=== PATIENT | male | born 1950 | race Caucasian/White ===

== ENCOUNTER → 2020-02-05 10:47 | Outpatient (CLI) | payer MEDICARE, SELFPAY ==
--- NOTE | ~2020-02-05 | XR_ITS ---
XR ankle RT min 3V DATE: 02/05/2020 11:11 INDICATION: Right ankle pain, right foot pain TECHNIQUE: 4 views COMPARISON: None FINDINGS: There is mild plantar calcaneal enthesopathy. No fracture or dislocation of the ankle or disruption of the ankle mortise. No periosteal reaction or bone destruction. Posterior tibial artery calcification is noted in the lower leg and foot. IMPRESSION: Mild plantar calcaneal enthesopathy Arterial calcification Reviewed, dictated and finalized at location B.
== END ==
PROVIDERS: PCP Family Medicine; Visit Provider Physician Assistant
DX: M77.31 Calcaneal spur, right foot (principal); I70.0 Atherosclerosis of aorta
CPT/HCPCS: 73610

== ENCOUNTER 2021-06-16 01:43 | Day surgery (SDC) | payer MEDICARE, SELFPAY ==
[2021-05-28 14:05] VITALS: BMI 26.5
[2021-06-16 07:05] VITALS: BP 152/74; PULSE 61; RESP 18; TEMP 36.3; O2SAT 97; BMI 28.3
[2021-06-16] MEDS: LACTATED RINGERS 1,000 ML 150 ML IV CONT (07:30)
--- NOTE | 2021-06-16 07:54 | WPDGICN ---
Assessment and Plan Assessment and plan (1) Encounter for screening colonoscopy: Code(s): Z12.11 - Encounter for screening for malignant neoplasm of colon Status: Acute Assessment and Plan: Patient presents for screening colonoscopy. He appears to be at average risk for colon polyps. Further recommendations will be given after colonoscopy. GI Consult Note Consult date/time: 06/16/21 07:54 HPI: Freeman Clarke is a 71 year old male Presents for screening colonoscopy. Patient reports his current weight appetite bowel movements are normal. He denies abdominal pain. He has had no bleeding. Family history is noncontributory. His last colonoscopy was 13 years ago. He desires neoplasia screening. Review of Systems Review of Systems: All systems reviewed & are unremarkable except as noted in HPI and below PMFSH Family History Family History (Reviewed 04/10/21 @ 09:04 by Jenny Rushing [facility]) Mother Patient's mother is , Onset Age: 92 Father Family history of Parkinson's disease, Onset Age: 86 Family history of suicide Sibling Family history of suicide Social History Social History (Reviewed 04/10/21 @ 09:04 by Jenny Rushing [facility]) Smoking status: Never smoker Second hand tobacco smoke exposure: No Alcohol intake: current Drinks per week: 7 Substance use type: does not use Living arrangements: alone Meds Home Medications and Allergies Home Medications Medication Instructions Recorded Confirmed Type aspirin 81 mg tablet,delayed 81 mg PO DAILY 06/11/20 06/16/21 History release zinc 50 mg tablet 50 mg PO DAILY 06/11/20 06/16/21 History alprazolam 0.5 mg tablet 0.5 mg PO .qhs #90 tablet 05/28/21 06/16/21 Rx venlafaxine [Effexor XR] See Rx Instructions .ROUTE .COMPLEX 05/28/21 06/16/21 History Allergies Allergy/AdvReac Type Severity Reaction Status Date / Time No Known Allergies Allergy Unknown Verified 06/16/21 07:18 Vital Signs Vital Signs - 24 hr 06/16/21 07:05 Temperature 97.3 F L Pulse Rate 61 Respiratory Rate 18 Blood Pressure 152/74 H Pulse Oximetry 97 Exam Narrative: Physical exam reveals patient to be alert. Vital signs stable. HEENT exam is unremarkable. Patient is anicteric. Lungs are clear to auscultation and percussion. Heart is without murmur or extra sounds. Abdominal exam bowel sounds are present soft nontender with no organomegaly. Digital external rectal exam is normal.
--- NOTE | 2021-06-16 08:22 | WPDANESEPPF ---
Anes - Initial Pre Proc Eval Procedure: Operation Date: 06/16/21 08:30 Proposed Procedures p Screening Colonoscopy - Clarence Walker MD Date/Time: 06/16/21 08:22 Surgeon: Clarence Walker MD Pre Op Diagnosis: neoplasm screening Patient Data Age: 71 Gender: M Height: 1.78 m Weight: 89.5 kg Last Vital Signs Temp 97.3 F L 06/16/21 07:05 Pulse 61 06/16/21 07:05 Resp 18 06/16/21 07:05 BP 152/74 H 06/16/21 07:05 Pulse Ox 97 06/16/21 07:05 Allergies Allergy/AdvReac Type Severity Reaction Status Date / Time No Known Allergies Allergy Unknown Verified 06/16/21 07:18 Home Medications Medication Instructions Recorded Confirmed Type aspirin 81 mg tablet,delayed 81 mg PO DAILY 06/11/20 06/16/21 History release zinc 50 mg tablet 50 mg PO DAILY 06/11/20 06/16/21 History alprazolam 0.5 mg tablet 0.5 mg PO .qhs #90 tablet 05/28/21 06/16/21 Rx venlafaxine [Effexor XR] See Rx Instructions .ROUTE .COMPLEX 05/28/21 06/16/21 History Patient hx anesthesia problems: none Family hx anesthesia problems: none Results Review: All pre-operative results and documents have been reviewed as part of the pre-operative evaluation. [facility] Past Medical History Medical History (Updated 06/16/21 @ 08:22 by Pal Cherry MD) Essential (primary) hypertension (08/03/17) Family History Family History Mother Patient's mother is , Onset Age: 92 Father Family history of Parkinson's disease, Onset Age: 86 Family history of suicide Sibling Family history of suicide Social History Social History Smoking status: Never smoker Second hand tobacco smoke exposure: No Alcohol intake: current Drinks per week: 7 Substance use type: does not use Living arrangements: alone Anes - Eval Final PreProcedure Day of Procedure 06/16/21 08:22 Patient weight: obese Heart: regular rate and rhythm Lungs: clear to auscultation Airway: Mallampati scale class II Neurological: alert and oriented Last oral intake: >/= 8 hours ASA classification: III Emergent: no Anesthetic plan: proceed Anesthesia type and monitoring: general GIVS and standard monitoring Results Review: All pre-operative results and documents have been reviewed as part of the pre-operative evaluation. Informed Consent: The patient's anesthetic plan and its attendant risks and benefits were discussed with the patient/family/POA. Questions were solicited and answers provided to the satisfaction of the patient/family/POA.
[2021-06-16 08:59] VITALS: BP 128/73; PULSE 59; RESP 27; O2SAT 97
[2021-06-16 09:09] VITALS: BP 150/91; PULSE 55; RESP 26; O2SAT 98
[2021-06-16 09:19] VITALS: BP 142/73; PULSE 50; RESP 20; O2SAT 96
== END 2021-06-16 09:35 | disposition home or self-care (01) ==
PROVIDERS: PCP Family Medicine; Visit Provider Internal Medicine Gastroenterology
PROC: 0DJD8ZZ Inspection of Lower Intestinal Tract, Via Natural or Artificial Opening Endoscopic (ICD-10-PCS; CPT 45378; principal; 2021-06-16 08:30)
DX: Z12.11 Encounter for screening for malignant neoplasm of colon (principal); K64.8 Other hemorrhoids; K57.30 Diverticulosis of large intestine without perforation or abscess without bleeding; I10 Essential (primary) hypertension; Z79.82 Long term (current) use of aspirin; E66.9 Obesity, unspecified; Z68.28 Body mass index [BMI] 28.0-28.9, adult
CPT/HCPCS: G0121; J2704; J7120

== ENCOUNTER → 2022-12-09 11:50 | Outpatient (CLI) | payer MEDICARE, SELFPAY ==
--- NOTE | ~2022-12-09 | XR_ITS ---
AP and lateral views of the right tibia/fibula Clinical History: Injury Findings: No acute fracture or dislocation is seen. Osseous alignment is anatomic. Joint spaces are p reserved without significant erosive or degenerative change. Vascular calcifications are noted. Impression: Unremarkable right tib-fib radiographs. Reviewed, dictated and finalized at [facility]. Impression: Unremarkable right tib-fib radiographs.
== END ==
PROVIDERS: PCP Nurse Practitioner Family; Visit Provider Nurse Practitioner Family
DX: S80.811A Abrasion, right lower leg, initial encounter (principal); X58.XXXA Exposure to other specified factors, initial encounter
CPT/HCPCS: 73590

== ENCOUNTER 2023-05-19 09:27 | Outpatient (CLI) | payer MEDICARE, SELFPAY ==
[2023-05-19 18:55] LABS: Basophils Absolute Auto 0.1 K/mm3 (0.0-0.1); Basophils Percent Auto 0.8 % (0.2-1.2); Eosinophils Absolute Auto 0.1 K/mm3 (0-0.3); Eosinophils Percent Auto 1.2 % (0-4.4); Hematocrit 45.2 % (42.0-52.0); Immature Granulocyte Absolute 0.02 K/mm3 (0.00-0.031); Immature Granulocyte Percent A 0.3 % (0-0.5); Lymphocytes Absolute Auto 2.23 K/mm3 (0.9-3.2); Lymphocytes Percent Auto 36.7 % (18.3-44.2); Mean Corpuscular HGB Conc 33.2 g/dl (32-36); Mean Corpuscular Hemoglobin 32.7 pg (26-34); Mean Corpuscular Volume 98.5 fl (80-100); Mean Platelet Volume 10.3 fl (7.4-10.4); Monocytes Absolute Auto 0.5 K/mm3 (0.1-0.6); Monocytes Percent Auto 8.6 % (2.6-8.5); Neutrophils Absolute Auto 3.2 K/mm3 (1.3-6.7); Neutrophils Percent Auto 52.4 % (45.5-73.1); Platelet Count Result 255 k/mm3 (150-375); Red Blood Count 4.59 M/mm3 (4.6-6.20); Red Cell Distribution Width 13.1 % (11.5-14.5); White Blood Count 6.1 K/mm3 (4.5-10.0)
[2023-05-19 19:36] LABS: Creatinine Urine 30.8 mg/dL
[2023-05-19 19:41] LABS: Microalbumin Urine Random < 6.0 mg/L (0-16.7)
[2023-05-19 19:42] LABS: MALB Creatinine Ratio < 19.5 mg/g (0-30)
[2023-05-19 21:29] LABS: Alanine Aminotransferase 31 U/L (6-50); Albumin Level 4.2 g/dL (3.5-5.1); Alkaline Phosphatase 67 U/L (38-126); Anion Gap 4 mmol/L (8-16); Aspartate Amino Transferase 40 U/L (17-59); Bilirubin,Total 0.7 mg/dL (0.2-1.3); Blood Urea Nitrogen 14 mg/dL (9-20); Calcium 9.3 mg/dL (8.4-10.2); Carbon Dioxide 32 mmol/L (22-30); Chloride 100 mmol/L (98-107); Cholesterol 133 mg/dL (0-200); Estimated Glomerular Filt Rate > 60; Glucose 123 mg/dL (65-110); HDL Direct 63 mg/dL; Potassium 4.6 mmol/L (3.4-5.0); Sodium 136 mmol/L (137-145); Triglycerides 39 mg/dL (<150)
[2023-05-19 21:40] LABS: LDL Cholesterol Direct 62 mg/dL
[2023-05-20 14:56] LABS: Prostate Specific Antigen 0.8 ng/mL (< OR = 4.0)
== END 2023-05-19 09:28 | disposition home or self-care (01) ==
LOC: ANHGOSHLAB 09:29
PROVIDERS: PCP Family Medicine; Visit Provider Nurse Practitioner Family
DX: E11.65 Type 2 diabetes mellitus with hyperglycemia (principal); E66.9 Obesity, unspecified; Z79.899 Other long term (current) drug therapy; R79.89 Other specified abnormal findings of blood chemistry; Z12.5 Encounter for screening for malignant neoplasm of prostate
CPT/HCPCS: 36415; 80053; 80061; 82043; 83036; 84153; 84443; 85025; G0103

== ENCOUNTER 2023-06-22 19:05 | Emergency (ER) | payer MEDICARE, SELFPAY ==
--- NOTE | ~2023-06-22 | XR_ITS ---
EXAMINATION: XR chest 2V Exam Date/Time: 06/22/2023 19:15 MEDICAL OFFICE SPECIALIST HISTORY: CHEST PAIN/ANXIETY/PALPITATION Comparison: 01/30/2017. RESULT: Lines, tubes, and devices: None. Lungs and pleura: Clear. Cardiomediastinal silhouette: Stable. Other: No acute osseous or upper abdominal finding. IMPRESSION: No acute cardiopulmonary process. Reviewed, dictated and finalized at location K. [facility] SPECIALIST
--- NOTE | 2023-06-22 19:06 | ECG_ITS ---
Measurements Intervals [place] Rate: 63 P: -33 OR: 160 QRS: -12 QRSD: 97 T: 9 QT: 389 QTc: 401 Interpretive Statements SINUS RHYTHM WITH OCCASIONAL VENTRICULAR PREMATURE COMPLEXES MODERATE VOLTAGE CRITERIA FOR LVH, CONSIDER NORMAL VARIANT U WAVE PRESENT, CONSIDER HYPOKALEMIA NO PREVIOUS ECG AVAILABLE FOR COMPARISON Electronically Signed On 06-22-2023 20:27:00 [employer] by Lindsey Dan M.D.
[2023-06-22 19:13] VITALS: BP 163/78; PULSE 72; RESP 18; TEMP 36.4; O2SAT 99
--- NOTE | 2023-06-22 20:47 | PC.NURSE ---
patient states that he feels better and he will f/u with PCP tomorrow. advised to return if needed. verbalized understanding
== END 2023-06-22 21:12 | disposition left against medical advice (07) ==
LOC: ANHED 20:52
PROVIDERS: Emergency Provider Student in an Organized Health Care Education/Training Program; PCP Family Medicine
DX: R00.2 Palpitations (principal)
CPT/HCPCS: 71046; 93005; 99199